=== PATIENT | female | born 1940 | race Two or more races ===

== ENCOUNTER 2023-07-27 13:15 | Emergency (ER) | payer OTHER ==
[~2023-07-27] VITALS: Ht 154.9 cm; Wt 70.3 kg
[2023-07-27] MEDS ORDERED: DIPHENHYDRAMINE HCL 50 MG/ML VIAL 1ML IM ONE (16:00)
[2023-07-27 16:21] LABS: HEMATOCRIT 45.7 % (36.0-45.00); HEMOGLOBIN 15.7 g/dL (12.0-15.00); MEAN CELL VOLUME 89.5 fL (80.00-100.00); MEAN CORPUSCULAR HEMOGLOBIN 30.7 pg (27.00-32.0); MEAN CORPUSCULAR HGB CONC 34.3 g/dl (32.0-36.0); PLATELET COUNT 260 K/uL (150-450); RED BLOOD COUNT 5.11 M/uL (4.00-6.00); RED CELL DISTRIBUTION WIDTH 14.9 % (11.5-14.5)
[2023-07-27] MEDS ORDERED: DERMAGESIC CRE113 GM TOP (16:46)
== END 2023-07-27 17:30 | disposition home or self-care (01) ==
LOC: ER 13:16
PROVIDERS: Nurse Practitioner Family
DX: R21 Rash and other nonspecific skin eruption (principal); E11.9 Type 2 diabetes mellitus without complications
CPT/HCPCS: 36415; 96372; 99282; J1200

== ENCOUNTER 2024-03-16 17:22 | Inpatient (IN) | payer OTHER ==
[~2024-03-16] VITALS: Ht 154.9 cm; Wt 68.0 kg
[~2024-03-16 17:22] MED LIST: DERMAGESIC CRE113 GM TOP
[2024-03-16] MEDS ORDERED: LASIX20 MG (18:10)
[2024-03-16] MEDS ORDERED: LOSARTAN POTAS100 MG (18:10)
[2024-03-16] MEDS ORDERED: AMOXICILLIN500 MG PO (18:11)
[2024-03-16] MEDS ORDERED: ADULT LOW DOSE81 M1 (18:11)
[2024-03-16] MEDS ORDERED: DAFLONEX-XL 11300 MG (18:11)
[2024-03-16] MEDS ORDERED: GLIMEPIRIDE2 MG (18:12)
[2024-03-16] MEDS ORDERED: EVISTA60 MG PO (18:12)
--- NOTE | 2024-03-16 18:13 | NUR ---
PTE ALERTA Y ORIENTADA X3, SE LINDSEY S/V. PTE REFIERE QUE DESDE HACE DOS SPANN PRESENTA LAS DOS PIERNAS CON INFLAMACION. SE OBSERVA AREA CON RASH Y ROJISA. SE UBICA EN PASILLO.
--- NOTE | 2024-03-16 19:31 | NUR ---
SE EDUCA A PTE SOBRE TX MEDICO, SE LINDSEY MUESTRAS DE LABORATORIO UTILIZANDO MEDIDAS ASEPTICAS. SE COLOCA H/L LINDSEY DE EDEMA. SE NOTIFICA ESTUDIO DE RX PENDIENTE A REALIZAR.
[2024-03-16 20:23] LABS: D DIMER 0.85 MG/L
[2024-03-16 20:27] LABS: ALBUMIN 3.7 gm/dL (3.4-5.0); BILIRUBIN TOTAL 0.41 mg/dL (0.3-1.2); CALCIUM 9.8 mg/dL (8.5-10.1); CREATININE SERUM 0.73 mg/dL (0.55-1.02); GFR 76.14; GLOBULINA 3.8 G/DL (2.4-3.5); POTASSIUM 4.11 mEq/L (3.5-5.1); TOTAL PROTEIN 7.5 gm/dL (6.4-8.2)
[2024-03-16 20:28] LABS: URINE APPEARANCE Clear; URINE BILIRRUBIN Negative (NEGATIVE); URINE BLOOD Negative; URINE COLOR Yellow; URINE GLUCOSE Negative (NEGATIVE); URINE KETONE Negative (NEGATIVE); URINE LEUKOCYTE Negative; URINE NITRATE Negative; URINE PROTEIN Negative (NEGATIVE); URINE UROBILINOGEN 0.2 E.U./dl
[2024-03-16 20:28] LABS: C-REACTIVE PROTEIN 0.52 MG/DL (0.00-0.29)
[2024-03-16 20:31] LABS: URINE BACTERIA 7.5 uL (0.0-1933); URINE CAST 1.83 uL (0.0-1.40); URINE EPITHELIAL CELLS 3.3 uL (0.0-38.8); URINE WBC 5.5 uL (0.0-23.2)
[2024-03-16 20:37] LABS: URINE CRYSTALS MODERATE /HPF
[2024-03-16 21:15] LABS: HEMATOCRIT 48.1 % (36.0-45.00); HEMOGLOBIN 16.1 g/dL (12.0-15.00); MEAN CELL VOLUME 88.2 fL (80.00-100.00); MEAN CORPUSCULAR HEMOGLOBIN 29.6 pg (27.00-32.0); MEAN CORPUSCULAR HGB CONC 33.6 g/dl (32.0-36.0); PLATELET COUNT 252 K/uL (150-450); RED BLOOD COUNT 5.45 M/uL (4.00-6.00)
[2024-03-16 21:24] LABS: ERYTHROCYTE SEDIMENTATION RATE 11 mm/hr
[2024-03-16] MEDS ORDERED: 0.9 % SODIUM CHLORIDE 1,000 ML IV SCH (22:15)
[2024-03-16] MEDS ORDERED: ACETAMINOPHEN 500 MG GEL..CAP PO PRN (22:30)
[2024-03-16] MEDS ORDERED: METHYLPREDNISOLONE SOD SUCC 125 MG VIAL IV ONE (22:30)
[2024-03-16] MEDS ORDERED: CEFTRIAXONE SODIUM 2,000 MG in 0.9 % SODIUM CHLORIDE 100 ML IV SCH (22:35)
[2024-03-16] MEDS ORDERED: DEXTROSE 50 % IN WATER 0.5 G/ML DISP.SYRIN IV PRN (22:45)
[2024-03-16] MEDS ORDERED: INSULIN LISPRO 1,000 UNIT/10 ML UNITS SUBCUTANEO PRN (22:45)
[2024-03-16 23:45] LABS: INR 0.98; PROTHROMBIN TIME 10.7 SECONDS (9.0-11.5)
[2024-03-16 23:48] LABS: D DIMER 0.92 MG/L; PARTIAL THROMBOPLASTIN TIME 25.9 SECONDS (22.0-34.0)
[2024-03-16 23:50] VITALS: BP 169/85; O2SAT 96
[2024-03-17 05:15] VITALS: BP 153/83; O2SAT 94
[2024-03-17 08:42] VITALS: BP 173/78
[2024-03-17] MEDS ORDERED: ENOXAPARIN SODIUM 40 MG/0.4 ML SYRINGE SUBCUTANEO SCH (09:00)
[2024-03-17] MEDS ORDERED: FAMOTIDINE/PF 20 MG in 0.9 % SODIUM CHLORIDE 8 ML IV PUSH SCH (09:00)
[2024-03-17] MEDS ORDERED: LOSARTAN POTASSIUM 100 MG TABLET PO NR (11:00)
[2024-03-17 17:29] VITALS: BP 150/90; O2SAT 96
[2024-03-18 01:14] VITALS: BP 160/80; O2SAT 93
[2024-03-18] MEDS ORDERED: LOSARTAN POTASSIUM 100 MG TABLET PO SCH (09:00)
[2024-03-18 09:09] VITALS: BP 150/77; O2SAT 100
[2024-03-18] MEDS ORDERED: DIPHENHYDRAMINE HCL 25 MG CAPSULE PO PRN (10:30)
[2024-03-18 18:09] VITALS: BP 107/96
[2024-03-18 21:54] VITALS: BP 140/80
[2024-03-19 02:27] VITALS: BP 152/79; O2SAT 100
[2024-03-19 09:06] VITALS: BP 147/79; O2SAT 99
== END 2024-03-19 13:19 | disposition home or self-care (01) | DRG 300 ==
LOC: ER 17:23 → MEDI 22:35
PROVIDERS: General Practice; ADMIT Internal Medicine; ATTEND Internal Medicine
PROC: B54DZZZ Ultrasonography of Bilateral Lower Extremity Veins (ICD-10-PCS; principal; 2024-03-18)
DX: I87.2 Venous insufficiency (chronic) (peripheral) (principal); L03.115 Cellulitis of right lower limb; L03.116 Cellulitis of left lower limb; I77.6 Arteritis, unspecified; R21 Rash and other nonspecific skin eruption